=== PATIENT | male | born 1970 | race Caucasian/White ===

== ENCOUNTER 2021-08-05 12:39 | Outpatient (CLI) | payer OTHER, SELFPAY ==
--- NOTE | 2021-08-05 | US_ITS ---
WS: [id number] Bilateral renal ultrasound, 08/05/2021 Clinical Data: URINARY RETENTION Comparison: None. Findings: The right kidney measures 10.6 cm x 6.0 cm x 5.1 cm and the left kidney is 10.6 cm x 6.0 cm x 5.5 cm. There are no cysts, masses or hydronephrosis. The renal cortical margin is normal. There were bilate ral renal calculi.. The abdominal aorta and inferior vena cava show no vascular abnormalities. The bladder was scanned and and demonstrated a post voiding residual volume of 47.2 mL. US/US renal BI with PV bladder Impression: 1. Small bilateral renal calculi without hydronephrosis. 2. Post voiding residual volume of the bladder, 47.2 mL.
--- NOTE | 2021-08-05 | XR_ITS ---
WS: [id number] Abdomen series, Flat and upright 08/05/2021 Clinical Data: CONSTIPATION Comparison: None. Findings: No free air is seen beneath the diaphragms. No abnormal intra-abdominal masses are seen. Th ere are calcifications overlying both kidneys but fecal material and bowel gas obscure detail. No obs truction is seen but there is a large amount of fecal material throughout the colon. XR/XR abdomen min 2V [id number] Impression: Bilateral renal calculi.
== END 2021-08-05 12:40 | disposition home or self-care (01) ==
LOC: RADOUTREAD 12:56
PROVIDERS: PCP Family Medicine; Visit Provider Family Medicine
DX: R33.9 Retention of urine, unspecified (principal); N20.0 Calculus of kidney; K59.00 Constipation, unspecified
CPT/HCPCS: 74019; 76770; 76857

== ENCOUNTER 2021-09-12 09:21 | Outpatient (CLI) | payer OTHER, SELFPAY ==
--- NOTE | 2021-09-12 07:00 | XR_ITS ---
WS: [id number] KUB, AP view, 09/12/2021 Clinical Data: Renal Calculi Comparison: KUB, 08/05/2021. Findings: No abnormal intraabdominal masses are seen. There is no dilatated small bowel or evidence of obstruct ion. There are calcifications overlying both kidneys. However detail is obscured by overlying fecal materi al and gas. XR/XR KUB [id number] Impression: Bilateral renal calculi.
== END 2021-09-12 09:22 | disposition home or self-care (01) ==
LOC: RAD 09:22
PROVIDERS: PCP Family Medicine; Visit Provider Nurse Practitioner Family
DX: N20.0 Calculus of kidney (principal)
CPT/HCPCS: 74018; 81003

== ENCOUNTER → 2021-10-24 10:29 | Outpatient (BNVA) | payer OTHER, SELFPAY | PROVIDERS: PCP Family Medicine; Visit Provider Urology | DX: R39.9 Unspecified symptoms and signs involving the genitourinary system (principal) | CPT/HCPCS: 81003 ==

== ENCOUNTER → 2022-01-22 15:41 | Outpatient (BNVA) | payer OTHER, SELFPAY | PROVIDERS: PCP Family Medicine; Visit Provider Urology | DX: R39.9 Unspecified symptoms and signs involving the genitourinary system (principal); N20.0 Calculus of kidney | CPT/HCPCS: 81003 ==